=== PATIENT | female | born 1955 | race Asian ===

== ENCOUNTER → 2018-12-02 | Outpatient (CLI) | payer MEDICARE, BC | END | disposition home or self-care (01) | LOC: PCVCCLINIC 10:00 | PROVIDERS: ATTEND Internal Medicine | DX: R07.9 Chest pain, unspecified (principal); R93.1 Abnormal findings on diagnostic imaging of heart and coronary circulation; I10 Essential (primary) hypertension; G45.9 Transient cerebral ischemic attack, unspecified; R00.2 Palpitations; F41.9 Anxiety disorder, unspecified; Z91.018 Allergy to other foods | CPT/HCPCS: 93005; G0463 ==

== ENCOUNTER → 2019-01-06 | Outpatient (CLI) | payer MEDICARE, BC ==
--- NOTE | 2019-01-06 09:30 | PCVCIMAG ---
APPROVED REPORT Indications CVA/TIA: Risk Factors Hypertension: Doppler Spectral Velocity Analysis PSV / EDVPSV / EDV ECA (R) 76 / 12 cm/sECA (L) 39 / 5 cm/s dICA (R) 76 / 19 cm/sdICA (L) 84 / 25 cm/s [place]ill (R) 68 / 21 cm/smICA (L) 75 / 23 cm/s pICA (R) 65 / 18 cm/spICA (L) 49 / 15 cm/s Bulb (R) 59 / 13 cm/sBulb (L) 53 / 13 cm/s dCCA (R) 60 / 17 cm/sdCCA (L) 66 / 14 cm/s mCCA (R) 72 / 16 cm/smCCA (L) 63 / 15 cm/s Vert (R) 112 / 13 cm/sVert (L) 53 / 14 cm/s ICA/CCA 1.27 ICA/CCA 1.07 Basic Measurements Blood Pressure: Pulses: Right Left RightLeft Brachial(Sitting) 120/31nqPu555/80mmHgTemporal Real Time B-Mode Imaging Vert. (R)AntegradeVert. (L)Antegrade Findings RIGHT CAROTID: The carotid bulb has minimal plaque. The proximal internal carotid artery shows no significant stenosis. The common carotid artery shows no significant stenosis. The external carotid artery shows no significant stenosis. LEFT CAROTID: The carotid bulb has minimal plaque. The proximal internal carotid artery shows no significant stenosis. The common carotid artery shows no significant stenosis. The external carotid artery shows no significant stenosis. Conclusion No significant stenosis of the right internal carotid artery with minimal plaque. No significant stenosis of the left internal carotid artery with minimal plaque.
--- NOTE | 2019-01-06 12:06 | PCVCIMAG ---
APPROVED REPORT Study performed: 01/06/2019 08:29:04 EXAM: Comprehensive 2D, Doppler, and color-flow Echocardiogram Patient Location: Echo lab Status: routine BSA: 1.60 HR: 55 bpmBP: 124/80 mmHg Rhythm: Bradycardia Risk Factors: Cardiac Risk Factors: HTN Indications CVA/TIA Palpitations Chest Pain 2D Dimensions IVSd: 12.96 (7-11mm) LVDd: 38.81 mm PWd: 10.91 (7-11mm)Ascending Ao: 32.98 (22-36mm) LVDs: 28.70 (25-40mm) Left Atrium: 32.63 (27-40mm) Aortic Root: 27.79 mm LV Single Plane 4CH: 62.15 % LV Single Plane 2CH: 68.38 % Biplane EF: 67.0 % Volumes Left Atrial Volume (Systole) Single Plane 4CH: 46.12 mLSingle Plane 2CH: 58.56 mL LA ESV Index: 33.00 mL/m2 Aortic Valve AoV Peak Artem.: 1.52 m/s AO Peak Gr.: 9.19 mmHgLVOT Max P.92 mmHg LVOT Max V: 1.11 m/s AI Vmax: 5.38 m/s AI [place]: 3.05 m/s2 AI PHT: 520.65 ms Mitral Valve E/A Ratio: 1.6 MV Decel. Time: 214.24 ms MV E Max Artem.: 0.89 m/s MV A Artem.: 0.56 m/s IVRT: 121.11 ms Pulmonary Valve PV Peak Artem.: 0.91 m/sPV Peak Gr.: 3.29 mmHg Pulmonary Vein P Vein S: 0.36 m/sP Vein A: 0.40 m/s P Vein D: 0.63 m/sP Vein A Dur.: 145.3 msec P Vein S/D Ratio: 0.57 Tricuspid Valve TR Peak Artem.: 2.59 m/s TR Peak Gr.: 26.92 mmHg Left Ventricle The left ventricle is normal size. There is normal LV segmental wall motion. Mild concentric left ventricular hypertrophy. Left ventricular systolic function is normal. The left ventricular ejection fraction is within the normal range. LVEF is 60-65%. Grade II - pseudonormal filling dynamics. Right Ventricle The right ventricle is normal size. The right ventricular systolic function is normal. Atria The left atrium size is normal. The right atrium size is normal. Aortic Valve The aortic valve is normal in structure. Mild to moderate aortic regurgitation. There is no aortic valvular stenosis. Mitral Valve The mitral valve is normal in structure. Mild mitral regurgitation. No evidence of mitral valve stenosis. Tricuspid Valve The tricuspid valve is normal in structure. Mild tricuspid regurgitation with PAP of 34 mmHg. Pulmonic Valve The pulmonary valve is normal in structure. Mild pulmonic regurgitation. Great Vessels The aortic root is normal in size. IVC is normal in size and collapses >50% with inspiration. Pericardium There is no pericardial effusion. There is no pleural effusion. <Conclusion> The left ventricle is normal size. LVEF is 60-65%. The aortic valve is normal in structure. Mild to moderate aortic regurgitation. The mitral valve is normal in structure. Mild mitral regurgitation. The tricuspid valve is normal in structure. Mild tricuspid regurgitation with PAP of 34 mmHg. The pulmonary valve is normal in structure. Mild pulmonic regurgitation. There is no pericardial effusion.
--- NOTE | 2019-01-10 12:39 | PCVCIMAG ---
APPROVED REPORT Imaging Protocol: Rest Tc-99m/Stress Tc-99m 1 day Study performed: 01/06/2019 09:27:47 Indication: Chest pain, Dyspnea, Palpitations Patient Location: Out-Patient Stress Nurse: Ivory Griffith RN, Tamy Jacome RN ME Tech:Nayeli LaurenZARA muroMT Ht: 5 ft 4 in Wt: 125 lbs BSA: 1.60 m2 HR: 69 bpm BP: 152/70 mmHg BMI: 21.45 Rhythm: Normal Sinus Rhythm Medical History Medical History: HTN, Hyperlipidemia, CVD Medications: ASA, Zyrtec, Sythroid, Lisinopril, Omeprozole, Accupril, Lexapro Allergies: Wheat bran Cardiac Risk Factors: Age Pretest Chest Pain Characteristics: No chest pain Exercise History: Physically active Resting Data Rest SPECT myocardial perfusion imaging was performed in supine position 45 minutes following the intravenous injection of 10.1 mCi of Tc-99m Sestamibi. Time of rest injection: 0920 Administration Route: IV Administration Site: Right AC Exercise Stress At peak stress, the patient was injected intravenously with 33.9mCi of Tc-99m Sestamibi. Time of stress injection: 1045 Administration Route: IV Administration Site: Right AC Patient continued to exercise for 1 minute(s). Gated Stress SPECT was performed 30 minutes after stress injection. The images were gated to evaluate regional wall motion and calculate left ventricular ejection fraction. Stress Test Details Stress Test: Exercise stress testing was performed using a Jr protocol. HRMax Heart Rate (APMHR): 155 bpm Resting HR: 69 bpmTarget HR (85% APMHR): 131 bpm Max HR Achieved: 148 bpm % of APMHR: 95 Recovery HR: 82 bpm HR response to stress: Normal HR response to stress BP Resting BP: 152/70 mmHg Max BP: 186/86 mmHg Recovery BP: 156/76 mmHg BP response to stress: Normal blood pressure response to stress. ECG Resting ECG: Normal Sinus Rhythm Stress ECG: Sinus Tachycardia ST Change: Horizontal ST depression Maximum ST Deviation: 1 mm Arrhythmia: None Recovery ECG: Sinus Rhythm Recovery Arrhythmia: None Clinical Reason for Termination: Maximal effort Stress Symptoms: Dyspnea, Fatigue Exercise duration: 6 min 45 sec Exercise capacity: 9.3 METs Overall Exercise Capacity for Age: Average Scale: Active Angina Score: None Symptoms resolved during recovery. Stress ECG Conclusion 1. Subjectively negative for ischemia 2. Horizontal ST segment depression was noted suspicious for ischemia but did not refill criteria 3. Average functional capacity Estrella Treadmill Score is 1.0 which is Moderate risk. Study Data Post stress, the left ventricular ejection was 79%.. SSS: 0 SRS: 0 SDS: 0 TID = 0.82. Perfusion There is a small area of moderately reduced uptake in the apical segment of the anterior wall which is seen on the stress images as well as the resting images. This area thickens and moves normally and is most consistent with attenuation artifact. Wall Motion Normal left ventricular wall motion. Nuclear Conclusion ECG Findings: equivocal Clinical Findings: negative for ischemia Nuclear Findings: negative for ischemia Exercise Capacity: average Left Ventricular Function: normal 1. Low risk study 2. Post-rest left ventricle ejection fraction of 79% without wall motion abnormalities <Conclusion> 1. Subjectively negative for ischemia 2. Horizontal ST segment depression was noted suspicious for ischemia but did not refill criteria 3. Average functional capacity
== END | disposition home or self-care (01) ==
LOC: PCVCIMAG 07:57
PROVIDERS: ATTEND Internal Medicine
DX: I08.8 Other rheumatic multiple valve diseases (principal); I10 Essential (primary) hypertension; R93.1 Abnormal findings on diagnostic imaging of heart and coronary circulation
CPT/HCPCS: 78452; 93017; 93306; 93880; A9500

== ENCOUNTER → 2019-01-27 | Outpatient (CLI) | payer MEDICARE, BC | END | disposition home or self-care (01) | LOC: PCVCCLINIC 10:30 | PROVIDERS: ATTEND Internal Medicine | DX: R07.9 Chest pain, unspecified (principal); E78.5 Hyperlipidemia, unspecified; I10 Essential (primary) hypertension; F41.9 Anxiety disorder, unspecified; K21.9 Gastro-esophageal reflux disease without esophagitis; Z79.82 Long term (current) use of aspirin; Z88.8 Allergy status to other drugs, medicaments and biological substances; Z79.899 Other long term (current) drug therapy | CPT/HCPCS: 36415; 80061; G0463 ==